=== PATIENT | male | born 1965 | race African-American/Black ===

== ENCOUNTER 2019-10-15 09:15 | Inpatient (IN) | payer OTHER, MEDICAID ==
[~2019-10-15] VITALS: Ht 180.3 cm; Wt 80.7 kg
--- NOTE | 2019-10-15 09:15 | NUR ---
Patient BIBA ALS accompanied by Delfina ABREU, transferred to bed 9. RN evaluating patient at bedside.
[2019-10-15 09:17] VITALS: BP 120/72
--- NOTE | 2019-10-15 09:19 | NUR ---
Dr. South is evaluating the patient at bedside.
--- NOTE | 2019-10-15 09:20 | NUR ---
54 Y/O M BIBA FROM HOME DUE TO A SIDE EFFECT REACTION TO RX LOTUDA. PER EMS HAVING DISTONIA GIVEN BENADRYL IN THE FIELD AND PT IMPROVED. PT A/OX4. NOT COOPERATIVE WITH HX AND FULL RX. SIDE RAIL X1.
[2019-10-15] MEDS ORDERED: diphenhydrAMINE 50 MG/ML VIAL IVP ONE (09:25)
[2019-10-15] MEDS ORDERED: NACL 0.9% 1,000 ML IV ONE (09:25)
[2019-10-15 09:48] LABS: BASOPHILS % (AUTO) 0.6 % (0.0-2.0); EOSINOPHILS # (AUTO) 0.3 K/uL (0-0.4); EOSINOPHILS % (AUTO) 4.9 % (0.0-4.0); HEMATOCRIT 44.2 % (36-52); HEMOGLOBIN 14.4 g/dL (12.0-18.0); LYMPHOCYTES # (AUTO) 1.3 K/uL (2.0-11.5); LYMPHOCYTES % (AUTO) 25.6 % (20.5-51.1); MEAN CORPUSCULAR HEMOGLOBIN 29 pg (27-31); MEAN CORPUSCULAR HGB CONC 33 g/dL (33-37); MEAN CORPUSCULAR VOLUME 87.5 fL (80-94); MONOCYTES # (AUTO) 0.6 K/uL (0.8-1.0); MONOCYTES % (AUTO) 11.1 % (1.7-9.3); NEUTROPHILS # (AUTO) 2.9 K/uL (1.8-7.7); NEUTROPHILS % (AUTO) 57.8 % (42.2-75.2); PLATELET COUNT (AUTO) 256 K/uL (140-450); RED BLOOD CELL COUNT(AUTO) 5.05 MIL/uL (4.20-6.10); RED CELL DISTRIBUTION WIDTH 14.7 % (11.6-13.7); WHITE BLOOD COUNT (AUTO) 5.1 K/uL (4.8-10.8)
--- NOTE | 2019-10-15 10:31 | NUR ---
PATIENT RESTING IN BED, SIDE RAIL X1
[2019-10-15 10:37] LABS: ALBUMIN 3.4 g/dL (3.4-5.0); ANION GAP 7.5 (8-16); CARBON DIOXIDE 31.4 mmol/L (21-32); POTASSIUM 3.9 mmol/L (3.5-5.1); TOTAL BILIRUBIN 0.7 mg/dL (0.0-1.0)
--- NOTE | 2019-10-15 12:44 | NUR ---
Dr. South is re-evaluating the patient at bedside.
[2019-10-15] MEDS ORDERED: BENZTROPINE 2 MG/2 ML AMP IVP ONE ×2 (12:45→14:40)
[2019-10-15] MEDS: NACL 0.9% 1,000 ML IV SCH (14:53)
[2019-10-15] MEDS ORDERED: TAMS0.4C97 PO (14:55)
[2019-10-15] MEDS ORDERED: MAGN241.1 PO (14:55)
[2019-10-15] MEDS ORDERED: MIRT15TA PO (14:55)
[2019-10-15] MEDS ORDERED: DIVA250T PO (14:55)
[2019-10-15] MEDS ORDERED: LURA40TA PO (14:55)
[2019-10-15] MEDS ORDERED: CYAN100T65 PO ×2 (14:55→16:00)
[2019-10-15] MEDS ORDERED: [UNRECOGNIZED DRUG - CODE] PO (14:55)
[2019-10-15] MEDS ORDERED: CALC-575 PO (14:55)
[2019-10-15] MEDS ORDERED: PANT40EC PO ×2 (14:55→16:00)
[2019-10-15] MEDS ORDERED: ONDANSETRON 4 MG/2 ML VIAL IM/IVP PRN (14:55)
[2019-10-15] MEDS ORDERED: QUET300T26 PO (14:55)
[2019-10-15] MEDS ORDERED: MAGN400S60 PO (14:55)
[2019-10-15] MEDS ORDERED: ASCO500T45 PO (14:55)
[2019-10-15] MEDS ORDERED: HYDROcodone/APAP 7.5/325 MG 1 TAB PO PRN ×2 (14:55→17:25)
[2019-10-15] MEDS ORDERED: DICL3GEL5 TP (14:55)
[2019-10-15] MEDS ORDERED: ONDA4TAB PO (14:55)
[2019-10-15] MEDS ORDERED: DOCUSATE SODIUM 100 MG GELCAP PO PRN (14:55)
[2019-10-15] MEDS ORDERED: BUDE1AER IH (14:55)
[2019-10-15] MEDS ORDERED: KETO2CRE3 TP (14:55)
[2019-10-15] MEDS ORDERED: CHOL200035 PO (14:55)
[2019-10-15] MEDS ORDERED: [UNRECOGNIZED DRUG - CODE] PO (14:55)
[2019-10-15] MEDS ORDERED: HYDR-5092 PO (14:55)
[2019-10-15] MEDS ORDERED: ACETAMINOPHEN 325 MG TAB PO PRN (14:55)
[2019-10-15] MEDS ORDERED: AZEL137S8 NS (14:55)
[2019-10-15] MEDS ORDERED: NALO25TA PO (14:55)
[2019-10-15 15:25] VITALS: BP 135/87
--- NOTE | 2019-10-15 15:25 | NUR ---
Patient will be admitted to care of . Admited to MS. Will go to room 125B. Belongings list completed. Report to ALTAGRACIA PADILLA.
--- NOTE | 2019-10-15 15:25 | NUR ---
PT CAME TO UNIT ON WHEELCHAIR. PT AMBULATED FROM WHEEL CHAIR TO BED. ADMISSION ASSESSMENT DONE ON PATIENT. SKIN INTACT EXCEPT FOR AN OLD SURGERY SCAR ON LEFT CHEST. PT SAYS HE HAD PAST SUICIDAL IDEATION. NOW HE SAYS THAT PEOPLE ARE OUT TO KILL HIM. PT IS HOMELESS. PT [place] AND ENQUIRED ABOUT RESOURCES. PT HAS A SON BUT DOES NOT STAY WITH HIM. PT'S BELONGINGS WITH PATIENT. PT'S MEDICATIONS WAS SEEN BY DR. TREJO. IV INTACT. PAIN TO LEGS BUT TOLERABLE. NOTED WITH SWELLING TO INNER FEET. PT LAST TOOK ILLICIT DRUGS ON O. CHOICE OD DRUG WAS SPEED. PATIENT SMOKES 1 PACK PER DAY BUT REFUSED SMOKING CESSATION CLASSES. PT SAYS HE HAS A HISTORY OF BIPOLAR, SCHIZOPHRENIA, AND SUICIDAL IDEATION. BUT NOT CURRENT THOUGHTS TO HARM HIM. BED ALARM IN CHECK. PT IS ALERT AND AWAKE AND RESPONSIVE. PT HAD A SANDWICH AND JUICE TO DRINK. CALL LIGHT IN REACH.
[2019-10-15 15:53] LABS: PROTHROMBIN TIME 10.2 secs (10.8-13.4)
[2019-10-15 16:10] LABS: CHOL/HDL RATIO 3.2 (1-4.5); FREE T4 (FREE THYROXINE) 1.2 ng/dL (0.76-1.46); MAGNESIUM 1.9 mg/dL (1.8-2.4); THYROID STIMULATING HORMONE 1.24 uIU/mL (0.34-3.74)
[2019-10-15] MEDS ORDERED: MECLIZINE 25 MG TAB PO PRN (17:25)
[2019-10-15] MEDS ORDERED: LORazepam 2 MG/ML VIAL IVP PRN (17:25)
[2019-10-15] MEDS ORDERED: KCL 20 MEQ/WATER INJ PREMIX 200 ML IV PRN (17:40)
--- NOTE | 2019-10-15 17:59 | NUR ---
PT IS IN BED AT THIS TIME. PT AMBULATED TO RESTROOM. NO COMPLAINS OF PAIN. NO DISTRESS NOTED. CALL LIGHT IN REACH.
--- NOTE | 2019-10-15 18:09 | NUR ---
PT REFUSED LAB DRAW. UNABLE TO DRAW BLOOD FROM IV LINE. DID NOT GET A BLOOD RETURN.
--- NOTE | 2019-10-15 19:25 | NUR ---
SHIFT REPORT GIVEN TO DOOR TO DOOR FUNDRAISING COLLECTOR NURSE. PT IS IN BED IN STABLE CONDITION. CALL LIGHT IN REACH.
--- NOTE | 2019-10-15 19:25 | NUR ---
RECIEVED PT. AAOX4 , NID , IV SITE INTACT AND PATENT . DENIES PAIN . STILL FOR COLLECTION OF URINE - FOR URINE DRUG TEST - REMINDS PT. ON SAFETY / FALL PRECAUTION PROTOCOL - CALL LIGHT / URINAL WITHIN REACH . PLAN OF CARE DISCUSSED AND VERBALIZE UNDERSTANDING. WILL CONT. TO MONITOR. ON S2 PRECAUTION PROTOCOL .
[2019-10-15 20:00] VITALS: BP 122/78
[2019-10-15] MEDS: QUEtiapine FUMARATE 25 MG TAB PO SCH (20:52)
[2019-10-15] MEDS: DIVALPROEX 500 MG TABEC PO SCH (20:52)
--- NOTE | 2019-10-15 22:00 | NUR ---
MADE ROUNDS , NO COMPLAIN MADE AT THIS TIME . CALL LIGHT WITHIN REACH.
--- NOTE | 2019-10-15 23:34 | NUR ---
MADE ROUNDS - NO S/ S OF ACUTE DISTRESS NOTED - REFUSED V/ S TAKING.
--- NOTE | 2019-10-16 02:00 | NUR ---
NO COMPLAIN MADE.
--- NOTE | 2019-10-16 02:10 | NUR ---
MADE ROUNDS , REMINDS HIM HE SCHEDULED FOR HEAD CT SCAN - HE SAID LEAVE ME ALONE.
--- NOTE | 2019-10-16 06:00 | NUR ---
INFORM LEXI PT REFUSED CT HEAD AND LAB BLOOD DRAW.
--- NOTE | 2019-10-16 07:20 | NUR ---
RECEIVED REPORT FROM FRUIT BUYING GRADER NURSE. PT IS AWAKE AND ORIENTED. INTRODUCED MYSELF AND UPDATED THE BOARD. V/S WITHIN NORMAL. IV ON L AC 20G, NS AT 60ML/HR. SKIN IS INTACT. DENIES PAIN. AMBULATORY. PER FRUIT BUYING GRADER, PT REFUSED LABS, CT OF THE HEAD, THIS MORNING. WILL CONTINUE TO MONITOR PT.
[2019-10-16 07:23] LABS: BARBITURATE, URINE NEG. ng/ml (NEG <=200); BENZODIAZEPINE, URINE NEG. ng/mL (NEG <=200); CANNABINOID, URINE NEG. ng/mL (NEG <=50); COCAINE, URINE NEG. ng/mL (NEG <=300); OPIATE, URINE NEG. ng/mL (NEG <=2000); PHENCYCLIDINE SCREEN,URINE NEG. ng/mL (NEG <=25)
[2019-10-16] MEDS: NACL 0.9% 1,000 ML IV SCH (07:33)
[2019-10-16 08:00] VITALS: BP 103/69
--- NOTE | 2019-10-16 08:16 | NUR ---
PATIENT HAS BEEN SCREENED AND CATEGORIZED LOW NUTRITION RISK. PATIENT WILL BE SEEN WITHIN 7 DAYS OF ADMISSION. 10/22/[address]
[2019-10-16 08:26] LABS: APPEARANCE,URINE CLEAR (CLEAR); BILIRUBIN,URINE NEGATIVE (NEGATIVE); BLOOD, URINE NEGATIVE (NEGATIVE); COLOR,URINE YELLOW (YELLOW); LEUKOCYTE ESTERASE ,URINE NEGATIVE (NEGATIVE); NITRITE, URINE NEGATIVE (NEGATIVE); UGLUCOSE NEGATIVE (NEGATIVE)
[2019-10-16 08:27] LABS: T4 (THYROXINE) 5.1 ug/dL (4.5-12.0)
--- NOTE | 2019-10-16 08:30 | NUR ---
NOTICED PT'S IV SITE WAS BLEEDING. CHECKED ON THE DRESSING. CHANGED DRESSING BUT IV IS ALMOST OUT OF PLACE. PT REFUSED ANOTHER IV ACCESS. WILL NOTIFY
[2019-10-16] MEDS: NICOTINE TRANSD SYS 14 MG/24 HR PATCH TD SCH (09:19)
[2019-10-16] MEDS: TAMSULOSIN 0.4 MG CAP PO SCH (09:20)
[2019-10-16] MEDS: DIVALPROEX 500 MG TABEC PO SCH ×2 (09:20→20:35)
[2019-10-16] MEDS: QUEtiapine FUMARATE 25 MG TAB PO SCH (09:20)
[2019-10-16] MEDS: ALBUTEROL SULFATE/IPRATROPIU 3 ML SOL IH SCH ×2 (09:26→21:35)
[2019-10-16] MEDS ORDERED: diphenhydrAMINE 50 MG CAP PO SCH (09:56)
--- NOTE | 2019-10-16 11:35 | NUR ---
[employer] Note: Per patient, he does not want to provide me with information for assessment/discharge plan.
[2019-10-16 12:00] VITALS: BP 101/68
--- NOTE | 2019-10-16 12:38 | NUR ---
DISCHARGE PLANNING: THIS IS A 55 Y/O MALE PATIENT FROM HOME, WHO CAME IN DUE TO LOCKED JAW, UNABLE TO MOVE AND JITTERY SENSATION X 1 DAY. PAST MEDICAL HISTORY INCLUDE LIVER CIRRHOSIS, ETOH ABUSE, CHRONIC PAIN, COPD. INITIAL DIAGNOSIS OF DYSTONIA. CURRENT LABS INCLUDE WBC 5.1, H/H 14.4/44.2, NA/K 139/3.9, BUN/CREA 10/1.0. UDS SHOWED POSITIVE FOR AMPHETAMINES. MRSA NARES PENDING. ON SEROQUEL, DEPAKOTE. CONSULTS INCLUDE NEURO, PODIATRY AND PSYCHE CONSULTS. DC PLAN PENDING ON PATIENT'S RESPONSE TO TREATMENT. Addendum: 10/17/19 at 1559 by Evelyn Parra CM 0900: RECEIVED AN ORDER FOR [facility] FOR PT. MET WITH THE PATIENT AT THE BEDSIDE TO DISCUSS DC PLANNING AND IS IN AGREEMENT. HE ALSO STATED HE DOES NOT HAVE ANY PREFERENCE. HE SAID HIS PLAN IS TO GO BACK HOME WITH HIS SON AFTER SNF. HE ALSO STATED THAT HE RECEIVES $800/MONTH FROM [employer], BUT IS NOT WILLING TO PAY FOR A BOARD AND CARE. HE STATED THAT HIS SON WHO LIVES ON A SECTION 8 HOUSING IS WILLING TO TAKE HIM BACK. INQUIRY SENT TO [facility], [facility] AND [facility]. PER [facility], THEY WILL REVIEW THE REFERRAL PER [facility], THEY WILL REVIEW THE REFERRAL. Addendum: 10/17/19 at 1608 by Evelyn Parra CM RECEIVED A CALL FROM [facility] [phone], STATING THAT THEY ARE ABLE TO ACCEPT THE PATIENT AND WILL BE ABLE TO SET UP TRANSPORT WELL. DR. MCKEON AND CHARGE NURSE MADE AWARE.
[2019-10-16] MEDS: AZELASTINE NASAL SPRAY NS SCH (15:29)
[2019-10-16 16:43] VITALS: BP 119/76
--- NOTE | 2019-10-16 17:00 | NUR ---
LATE ENTRY. PT HAD AT LEAST 5 SANDWICHES IN BETWEEN MEALS. CONSTANTLY ASKS FOR FOOD. IF NOT EATING, SLEEPING. NO MORE JITTERY, LOCKED JAW. ALL SX RESOLVED. IV NOT WORKING. REFUSED REINSERT. MD AWARE. MOST LIKELY D/C TOMORROW.
--- NOTE | 2019-10-16 19:20 | NUR ---
ENDORSED PT TO THE SAND CAR WORKER NURSE. PT IS IN STABLE CONDITION.
--- NOTE | 2019-10-16 19:25 | NUR ---
RECEIVED PT ON BED, AAOX4, DENIES ANY PAIN, NO COMPLAINT OF JITTERY OR LOCKJAW, NO IV ACCESS AT THIS TIME, PT REFUSED IN INSERTION, 'S ARE AWARE, ON SEIZURE PRECAUTION WITH SIDE RAILS UP AND PADDED, SAFETY MEASURES IN PLACE, CALL LIGHT WITHIN REACH.
[2019-10-16] MEDS: diphenhydrAMINE 50 MG CAP PO SCH (20:35)
[2019-10-16] MEDS: QUEtiapine FUMARATE 100 MG TAB PO SCH (20:35)
--- NOTE | 2019-10-16 20:35 | NUR ---
DUE MEDS ADMINISTERED WITH EDUCATION PROVIDED, PT PROVIDED WITH COFFEE PER REQUEST, ALL NEEDS ATTENDED.
--- NOTE | 2019-10-16 21:35 | NUR ---
PT REFUSED SCHEDULED BREATHING TX. PT SATURATION WAS 97% ON RA. B/S WERE CLEAR.NO SOB NOTED. WILL CONT TO MONITOR
--- NOTE | 2019-10-16 23:45 | NUR ---
PT REFUSED VITAL SIGNS TAKING, RISK AND BENEFITS EXPLAINED, PT STILL REFUSING STATED "LEAVE ME ALONE" THEN COVERED HIS HEAD WITH BLANKET, NO SIGNS OF DISTRESS, CONTINUE TO MONITOR CLOSELY.
[2019-10-17] MEDS: NACL 0.9% 1,000 ML IV SCH ×2 (00:13→16:53)
--- NOTE | 2019-10-17 05:25 | NUR ---
PT AWAKE, PT REFUSED AM LAB DRAW, RISK AND BENEFITS EXPLAINED, STILL REFUSING, COFFEE PROVIDED PER REQUEST, ALL NEEDS ATTENDED.
--- NOTE | 2019-10-17 07:16 | NUR ---
PT AWAKE, NO SIGNS OF DISTRESS, BEDSIDE REPORT GIVEN TO RANDY HEADLEY FOR CONTINUITY OF CARE.
--- NOTE | 2019-10-17 07:28 | NUR ---
RECEIVED BEDSIDE REPORT FROM HOSE OPERATOR NURSE RUBEN. PT IS ASLEEP, NO S/S OF DISTRESS, ON ROOM AIR, SKIN INTACT. NO IV SITE, PT HAS REFUSED IV PLACEMENT. FALL PRECAUTIONS IN PLACE. SEIZURE PRECAUTIONS IN PLACE. CALL LIGHT IS WITHIN REACH. PER NIGHT NURSE, PT HAS BEEN REFUSING VITAL SIGN CHECKS AND ASSESSMENTS. WILL CONTINUE TO MONITOR.
[2019-10-17 08:00] VITALS: BP_SYST 131; BP_SYST 145; BP_DIAS 81; BP_DIAS 98
[2019-10-17] MEDS: NICOTINE TRANSD SYS 14 MG/24 HR PATCH TD SCH (08:42)
[2019-10-17] MEDS: DIVALPROEX 500 MG TABEC PO SCH ×2 (08:43→21:34)
[2019-10-17] MEDS: QUEtiapine FUMARATE 100 MG TAB PO SCH ×2 (08:43→21:34)
[2019-10-17] MEDS: AZELASTINE NASAL SPRAY NS SCH (08:43)
[2019-10-17] MEDS: TAMSULOSIN 0.4 MG CAP PO SCH (08:43)
[2019-10-17] MEDS: diphenhydrAMINE 50 MG CAP PO SCH ×2 (08:43→21:34)
--- NOTE | 2019-10-17 08:47 | NUR ---
AM MEDS ADMINISTERED, PT TOLERATED WELL. PT REFUSED THE AZELASTINE NOSE SPRAY, SAYS IT "STUFFED HIM UP" AFTER HE TOOK IT LAST TIME.
[2019-10-17] MEDS: ALBUTEROL SULFATE/IPRATROPIU 3 ML SOL IH SCH ×2 (09:21→21:00)
--- NOTE | 2019-10-17 11:16 | NUR ---
PT IS LYING IN BED, COMFORTABLE, NO S/S OF DISTRESS. PT KEEPS ASKING FOR SANDWICHES. PT HAD A SANDWICH TODAY AFTER BREAKFAST AND ASKING FOR ONE AGAIN. PT MADE AWARE THAT LUNCH IS COMING IN LESS THAN AN HOUR.
--- NOTE | 2019-10-17 12:30 | NUR ---
GOT A CALL FROM LAB ASKING TO CANCEL PT'S LAB DRAW ORDERS FOR THIS MORNING, SINCE THE PT REFUSED THE DRAWS. DR TREJO MADE AWARE.
--- NOTE | 2019-10-17 13:41 | NUR ---
PT LYING COMFORTABLY IN BED, NO DISTRESS OR COMPLAINTS.
--- NOTE | 2019-10-17 15:47 | NUR ---
GOT A CALL FROM MARICHUY FROM [facility], WANTING TO SPEAK WITH THE PATIENT DIRECTLY REGARDING HIS RESIDENCE HISTORY. PHONE HANDED OVER TO THE PT.
[2019-10-17 16:00] VITALS: BP 135/83
--- NOTE | 2019-10-17 19:30 | NUR ---
ENDORSED PT TO SPIN INSTRUCTOR NURSE IN STABLE CONDITION.
--- NOTE | 2019-10-17 19:32 | NUR ---
RECEIVED FROM AM RN IN BED SLEEPING. CALL LIGHT WITH IN REACH. NO IVF SITE RT PT. REFUSED TO HAVE ONE PER AM RN AND THAT MD AWARE. PER AM RN PT. A/O X 4. ABLE TO VERBALIZE NEEDS WELL TOO. FOR D/C PLANNING TO SNF TOMORROW FOR CONTINUITY OF CARE .
--- NOTE | 2019-10-17 21:23 | NUR ---
PT REFUSED HHN TX. PT IN NO APPARENT RESPIRATORY DISTRESS AT THIS TIME; HR 66. RR 18, SPO2 OF 99% ON ROOM AIR, AND CLEAR BREATH SOUNDS. WILL CONTINUE TO MONITOR PT.
[2019-10-17 21:29] VITALS: BP 125/65
--- NOTE | 2019-10-17 21:35 | NUR ---
PT. AWAKE AT THIS TIME. ALLOWED ME TO TAKE VITAL SIGNS AT THIS TIME. ABLE TO VERBALIZE WELL IN FAROESE. EXPLAINED WHY I HAVE TO TAKE HIS VS PRIOR MEDICATIONS. AFTER EXPLAINING TO PT. AGREED TO HAVE VS TAKEN BY ME. ASKED IF HE IS HUNGRY AND HE SAID "NO" I HAD DINNER" ENCOURAGED TO CALL FOR ANY HELP HE MAY NEED. RE-ORIENTED TO CALL LIGHT USE.
--- NOTE | 2019-10-18 | NUR ---
REFUSED VITAL SIGNS BUT REQUESTED FOR JELLO. PROVIDED WITH SNACK. NO COMPLAINTS DONE. ABLE TO VERBALIZE NEEDS WELL.
--- NOTE | 2019-10-18 03:21 | NUR ---
BEEN SLEEPING WELL. NO COMPLAINTS DONE.
--- NOTE | 2019-10-18 06:07 | NUR ---
AWAKE AT THIS TIME AND SITTING UP IN BED. PROVIDED WITH COFFEE AND CHICKEN SANDWICH PER REQUEST."TOO HUNGRY". ABLE TO VERBALIZE NEEDS WELL. ABLE TO USE CALL LIGHT WELL . NO PAIN COMPLAINTS AND NO MUSCLE TREMORS OR SEIZURES COMPLAINT DONE THIS SHIFT.
--- NOTE | 2019-10-18 07:20 | NUR ---
RECEIVED PATIENT FROM FASHION JOURNALIST NURSE FOR CONTINUITY OF CARE. AAOX4. HUNGARIAN SPEAKING. NO SIGNS OF DISTRESS NOTED. RESPIRATIONS EVEN AND UNLABORED, ROOM AIR. VISIBLE CHEST RISE NOTED. SKIN WARM, DRY, INTACT. NO IV. BED IN LOW POSITION. CALL LIGHT IS WITHIN REACH. SAFETY MEASURES IN PLACE. PATIENT IS IN CONTACT PRECAUTION FOR + MRSA NARES. WILL CONTINUE TO MONITOR
--- NOTE | 2019-10-18 07:25 | NUR ---
PATIENT REFUSED BLOOD TO BE DRAWN PER PEELER OPERATOR
[2019-10-18] MEDS: ALBUTEROL SULFATE/IPRATROPIU 3 ML SOL IH SCH ×2 (07:54→20:44)
[2019-10-18 08:00] VITALS: BP 127/64
[2019-10-18] MEDS: MUPIROCIN CA NASAL 2% 1GM TUBE NS SCH (08:38)
[2019-10-18] MEDS: diphenhydrAMINE 50 MG CAP PO SCH ×2 (08:39→20:51)
[2019-10-18] MEDS: DIVALPROEX 500 MG TABEC PO SCH ×2 (08:39→20:50)
[2019-10-18] MEDS: TAMSULOSIN 0.4 MG CAP PO SCH (08:39)
[2019-10-18] MEDS: NICOTINE TRANSD SYS 14 MG/24 HR PATCH TD SCH (08:39)
--- NOTE | 2019-10-18 08:39 | NUR ---
GIVEN MORNING MEDICATIONS PO. BACTROBAN IN BOTH NARES. NICOTINE PATCH IN THE LEFT UPPER ARM. REMOVED PREVIOUS PATCH FROM YESTERDAY MORNING. GIVEN CHG BATH. EXPLAINED TO PATIENT MEDS AND SIDE EFFECTS. PATIENT VERBALIZED UNDERSTANDING. BED IN LOW POSITION. CALL LIGHT IS WITHIN REACH. WILL CONTINUE TO MONITOR
[2019-10-18] MEDS: CHLORHEXADINE GLUC 2% CLOTH TP SCH (08:40)
[2019-10-18] MEDS: QUEtiapine FUMARATE 100 MG TAB PO SCH ×2 (08:40→20:50)
[2019-10-18] MEDS ORDERED: QUET100T44 PO (09:20)
[2019-10-18] MEDS ORDERED: TAMS0.4C96 PO (09:20)
[2019-10-18] MEDS ORDERED: CHLO118S2 TP (09:20)
[2019-10-18] MEDS ORDERED: MUPI2CRE22 NS (09:20)
[2019-10-18] MEDS ORDERED: DIVA500E2 PO (09:20)
--- NOTE | 2019-10-18 09:23 | NUR ---
PATIENT REQUESTED CHICKEN SANDWICH. WILL CALL [facility]
[2019-10-18] MEDS: NACL 0.9% 1,000 ML IV SCH (09:33)
--- NOTE | 2019-10-18 09:34 | NUR ---
GIVEN CHICKEN SANDWICH TO THE PATIENT.
[2019-10-18 10:09] VITALS: BP 127/69
[2019-10-18] MEDS ORDERED: guaiFENesin 20 MG/ML UDC PO PRN (10:15)
--- NOTE | 2019-10-18 10:35 | NUR ---
PATIENT IS WATCHING TV AT THIS TIME. NO SIGNS OF DISTRESS NOTED. BED IN LOW POSITION. CALL LIGHT IS WITHIN REACH. WILL CONTINUE TO MONITOR
--- NOTE | 2019-10-18 10:44 | NUR ---
GIVEN ROBITUSSIN FOR COUGH. EXPLAINED TO PATIENT MED AND SIDE EFFECT. PATIENT VERBALIZED UNDERSTANDING. BED IN LOW POSITION. CALL LIGHT IS WITHIN REACH. WILL CONTINUE TO MONITOR
--- NOTE | 2019-10-18 10:55 | NUR ---
CONTACTED [facility] (TEL# [phone]), STATED SHE WILL CALL BACK WITH THE ROOM AND BED NUMBER. AWAITING FOR CALL BACK. -RANDY ASSIGNED MADE AWARE.
[2019-10-18] MEDS ORDERED: DIPH25TA53 PO (12:46)
--- NOTE | 2019-10-18 12:54 | NUR ---
GOT A CALL FROM MARICHUY, THE ADMITTING DIRECTOR AT [facility] ([phone]). SHE TOLD ME THAT THE ONLY AVAILABLE BED THERE IS OCCUPIED BY AN ISOLATION PATIENT + FOR C-DIFF. AIDEN, AND CHARGE NURSE, AWARE.
--- NOTE | 2019-10-18 13:29 | NUR ---
DR. BLANC IS AWARE REGARDING [facility] AVAILABILITY
--- NOTE | 2019-10-18 13:36 | NUR ---
MADE AWARE TO THE PATIENT THAT [facility] IS NOT AVAILABLE. DISCUSSED TO THE PATIENT THAT [facility] IS LOOKING FOR A DIFFERENT PLACE
--- NOTE | 2019-10-18 13:52 | NUR ---
GIVEN 2 PUDDING CUPS REQUESTED BY THE PATIENT
--- NOTE | 2019-10-18 15:26 | NUR ---
REQUESTED CHICKEN SANDWICH AND PUDDING. GIVEN THEM TO THE PATIENT
[2019-10-18 16:00] VITALS: BP 124/82
--- NOTE | 2019-10-18 16:56 | NUR ---
Remote Coders Note: I faxed referral to [facility]. Patient does not have snf preference. Blanca Andujar from [facility] and [facility] will review inquiry and inform patient's nurse if they can accept patient and provide RN with room number and accepting MD. Blanca stated if they can accept patient, she will arrange transportation for patient and pay transportation cost.
--- NOTE | 2019-10-18 17:00 | NUR ---
PATIENT IS AWARE THAT [facility] MIGHT BE AVAILABLE FOR TRANSFER. WILL FOLLOW UP WITH [facility]
--- NOTE | 2019-10-18 17:03 | NUR ---
PATIENT IS SLEEPING AT THIS TIME. NO SIGNS OF DISTRESS NOTED.BED IN LOW POSITION. CALL LIGHT IS WITHIN REACH. WILL CONTINUE TO MONITOR
--- NOTE | 2019-10-18 18:18 | NUR ---
PATIENT IS EATING DINNER AT THIS TIME. NO SIGNS OF DISTRESS NOTED. BED IN LOW POSITION. CALL LIGHT IS WITHIN REACH. WILL CONTINUE TO MONITOR
--- NOTE | 2019-10-18 18:59 | NUR ---
GIVEN PUDDING REQUESTED BY THE PATIENT
--- NOTE | 2019-10-18 19:13 | NUR ---
ENDORSED PATIENT TO THE ICE CREAM VAN VENDOR NURSE FOR CONTINUITY OF CARE. PATIENT IS AWAKE. NO SIGNS OF DISTRESS NOTED. RESPIRATIONS EVEN AND UNLABORED, ROOM AIR.
--- NOTE | 2019-10-18 19:20 | NUR ---
RECEIVED FROM AM RN IN BED AWAKE AND ALERT. NO SOB. DENIES ANY PAIN. PT. A/O X 4. ABLE TO USE CALL LIGHT FOR HELP. NO NOTED S/S OF DYSTONIA. ABLE TO MOVE ALL EXTREMITIES. ASKING AT THIS TIME IF HE HAS SOMEWHERE TO GO AFTER HERE AND THAT HE IS HOMELESS. INFORMED HIM THAT FILM PROCESSOR IS FINDING A PLACE FOR HIM . "OK"
[2019-10-18 20:41] VITALS: BP 127/65
--- NOTE | 2019-10-18 20:44 | NUR ---
PT REFUSED BREATHING TX. PT SAID THAT HE IS JUST TIRED. PT IS ON ROOM AIR RESTING COMFORTABLE. NO RESPIRATORY DISTRESS NOTED. WILL CONT TO MONITOR.
--- NOTE | 2019-10-18 20:51 | NUR ---
ALL P.O. MEDICATIONS TAKEN AND NO COMPLAINTS DONE. PROVIDED WITH MARCE SO HE WILL TAKE ALL MEDICATIONS REQUESTED. VERBALIZES NEEDS WELL IN [place]. ISOLATION PRECAUTIONS RT WITH MRSA NARES.
--- NOTE | 2019-10-18 22:29 | NUR ---
SLEEPING AT THIS TIME. NO RESTLESSNESS. ABLE TO USE URINAL . CALL LIGHT WITH IN REACH. ISOLATION PRECAUTION RT WITH MRSA NARES.
[2019-10-19] VITALS: BP 139/81
--- NOTE | 2019-10-19 00:10 | NUR ---
PT. SEEN STANDING BY THE DOORWAY WATCHING PEOPLE PASS BY. ENCOURAGED TO STAY INSIDE ROOM AND GO TO SLEEP. "I AM BORED" CALL LIGHT WITH IN REACH.
[2019-10-19] MEDS: NACL 0.9% 1,000 ML IV SCH ×2 (00:45→18:53)
--- NOTE | 2019-10-19 03:56 | NUR ---
PT. SLEEPING. NO RESTLESSNESS. CALL LIGHT WITH IN REACH.
--- NOTE | 2019-10-19 06:46 | NUR ---
PT. SLEEPING WELL UP TO THIS TIME. NO RESTLESSNESS. WILL ENDORSE TO AM RN FOR CONTINUITY OF CARE.
--- NOTE | 2019-10-19 07:10 | NUR ---
RECEIVED PATIENT FROM CONFLICT RESOLUTION PROFESSIONAL NURSE FOR CONTINUITY OF CARE. AAOX4. DUTCH SPEAKING. NO SIGNS OF DISTRESS NOTED. RESPIRATIONS EVEN AND UNLABORED, ROOM AIR. PATIENT IS GETTING BREATHING TX AT THIS TIME. VISIBLE CHEST RISE NOTED. SKIN WARM, DRY, INTACT. NO IV. BED IN LOW POSITION. CALL LIGHT IS WITHIN REACH. SAFETY MEASURES IN PLACE. PATIENT IS IN CONTACT PRECAUTION FOR + MRSA NARES. WILL CONTINUE TO MONITOR
[2019-10-19] MEDS: ALBUTEROL SULFATE/IPRATROPIU 3 ML SOL IH SCH ×2 (07:16→21:00)
--- NOTE | 2019-10-19 07:50 | NUR ---
PATIENT REFUSED VITAL SIGNS CHECK.
[2019-10-19] MEDS: CHLORHEXADINE GLUC 2% CLOTH TP SCH (08:28)
[2019-10-19] MEDS: diphenhydrAMINE 50 MG CAP PO SCH ×2 (08:28→21:26)
--- NOTE | 2019-10-19 08:28 | NUR ---
GIVEN MORNING MEDICATIONS PO. EXPLAINED TO PATIENT MEDS AND SIDE EFFECTS. PATIENT VERBALIZED UNDERSTANDING. BED IN LOW POSITION. WILL CONTINUE TO MONITOR.
[2019-10-19] MEDS: TAMSULOSIN 0.4 MG CAP PO SCH (08:29)
[2019-10-19] MEDS: QUEtiapine FUMARATE 100 MG TAB PO SCH ×2 (08:29→21:27)
[2019-10-19] MEDS: MUPIROCIN CA NASAL 2% 1GM TUBE NS SCH (08:29)
[2019-10-19] MEDS: DIVALPROEX 500 MG TABEC PO SCH ×2 (08:29→21:26)
[2019-10-19] MEDS: NICOTINE TRANSD SYS 14 MG/24 HR PATCH TD SCH (08:30)
--- NOTE | 2019-10-19 08:30 | NUR ---
PATIENT IS AWARE THAT HE WILL BE TRANSFERRED TO [facility] IN [place]. AWAITING FOR TRANSPORT. WILL LET THE PT KNOW ONCE TRANSPORT IS ARRANGED.
--- NOTE | 2019-10-19 09:55 | NUR ---
PATIENT REQUESTED [facility]ICIA ADEN. WILL CALL [facility]
--- NOTE | 2019-10-19 10:35 | NUR ---
MADE AWARE THAT THE [facility] IS NOT A GO. WILL UPDATE PATIENT ONCE THERE'S A NEW PLACEMENT
--- NOTE | 2019-10-19 12:07 | NUR ---
PATIENT IS ASLEEP. NO SIGNS OF DISTRESS NOTED. BED IN LOW POSITION. CALL LIGHT IS WITHIN REACH. WILL CONTINUE TO MONITOR
--- NOTE | 2019-10-19 13:29 | NUR ---
per Evelyn Parra ,KYLE pt is accepted at [facility] going to Rm 205 [address] and they will provide transportation.
[2019-10-19] MEDS ORDERED: CHLO118S2 TP (13:35)
[2019-10-19] MEDS ORDERED: MUPI2CRE22 NS (13:35)
--- NOTE | 2019-10-19 13:46 | NUR ---
PER MS. GILLESPIE, GERIATRIC NURSE PRACTITIONER, RAG SORTER TIME IS AT 2030
--- NOTE | 2019-10-19 14:00 | NUR ---
CALLED [facility] FOR LINE CONSTRUCTION ENGINEER TIME. PER [facility], WE NEED TO PROVIDE TRANSPORT
--- NOTE | 2019-10-19 14:00 | NUR ---
PATIENT REFUSED VITAL SIGNS CHECK
--- NOTE | 2019-10-19 14:18 | NUR ---
GOT A CALL FROM BISI GILLESPIE. SHE STATED THAT CHRIS FROM [facility] SAID THAT THEY WILL PROVIDE TRANSPORT. [facility]
--- NOTE | 2019-10-19 14:38 | NUR ---
ROAD TEST EXAMINER WILL CALL PHARMACY TO GET PATIENT'S HOME MEDICATIONS.
--- NOTE | 2019-10-19 14:59 | NUR ---
GOT A CALL FROM JOSE MIGUEL GUARD SERGEANT, THAT [facility] WILL PROVIDE TRANSPORT FOR PATIENT. WILL LET PATIENT KNOW
--- NOTE | 2019-10-19 17:00 | NUR ---
PATIENT SIGNED DISCHARGED PAPER. EXPLAINED THAT HE WILL BE TRANSFERRED TO [facility] FOR PT. PATIENT VERBALIZED UNDERSTANDING.
--- NOTE | 2019-10-19 17:03 | NUR ---
GIVEN JELLO AND PUDDING PATIENT REQUESTED
--- NOTE | 2019-10-19 17:35 | NUR ---
GAVE REPORT TO ROYAL PADILLA AT [facility]. SHE IS AWARE THAT BRAKE DRUM LATHE OPERATOR TIME IS 2030 TONIGHT. SHE IS ALSO AWARE THAT THE PATIENT IS HOMELESS, REFUSED FLU AND PNA VACCINES, REFUSED VITAL SIGNS, SKIN INTACT. NO IV. AMBULATORY, AND + MRSA NARES.
--- NOTE | 2019-10-19 18:31 | NUR ---
PER BISI GILLESPIE, PATIENT'S HOME MEDS WILL BE SENT TO [facility] TOMORROW 10/20/19 BECAUSE PHARMACY IS CLOSED ALREADY
--- NOTE | 2019-10-19 18:55 | NUR ---
FAXED DISCHARGED SUMMARY TO [facility] OF MRSA COLINIZATION. WILL CALL IF THEY RECEIVED
--- NOTE | 2019-10-19 19:00 | NUR ---
CALLED [facility] TO CONFIRM IF THEY RECEIVE THE DISCHARGE SUMMARY. BERT SAID YES AND THE PATIENT IS GOING TO BE TRANSFERRED AT 2030
--- NOTE | 2019-10-19 19:19 | NUR ---
ENDORSED PATIENT TO THE NIGHT NURSE FOR CONTINUITY OF CARE. PATIENT IS SLEEPING AT THIS TIME. NO SIGNS OF DISTRESS NOTED. BED IN LOW POSITION.
--- NOTE | 2019-10-19 19:20 | NUR ---
PM NURSE, SKYLAR, IS AWARE ABOUT PATIENT'S TRANSFER TO [facility].
--- NOTE | 2019-10-19 19:21 | NUR ---
RECEIVED BEDSIDE REPORT FROM DAY SHIFT NURSE. PT IN BED, RESTING. NO SOB OR ANY RESPIRATORY DISTRESS NOTED, BREATHING EVEN AND UNLABORED WITH ROOM AIR. SKIN INTACT, WARM AND DRY TO TOUCH. PT WAITING FOR TX. PT IN STABLE CONDITION.
--- NOTE | 2019-10-19 21:20 | NUR ---
RECEIVED CALL FROM [facility], THEY WERE NOT ABLE TO SET UP TRANSPORTATION TONIGHT AND THEY WILL COME, WORLD RENOWNED CHEF AND RESTAURANT OWNER PT ON TOMORROW MORNING. MADE AWARE OF DR. BERNARD, AND CHARGE NURSE, PRINCE.
--- NOTE | 2019-10-19 21:22 | NUR ---
RECEIVED PT FROM AM SHIFT. PT IN NO APPARENT RESPIRATORY DISTRESS AT THIS TIME; HR 70, RR 18, SPO2 100% ON ROOM AIR, AND A CLEAR BREATH SOUNDS. PT REFUSED HHN TX. WILL CONTINUE TO MONITOR PT.
--- NOTE | 2019-10-19 21:27 | NUR ---
INFORMED PT ABOUT DELAYED TRANSFER D/T TRANSPORTATION. GIVEN BENADRYL, SEROQUEL, AND DEPAKOTE MD ORDERED, PT TOLERATED WELL.
--- NOTE | 2019-10-19 22:25 | NUR ---
Patient's Plan of Care was discussed and reviewed with HARJINDER: GIANCARLO
--- NOTE | 2019-10-19 22:25 | NUR ---
ENDORSED PT TO GIANCARLO FOR CONTINUOUS CARE. PT IN STABLE CONDITION.
--- NOTE | 2019-10-19 22:26 | NUR ---
RECD. SLEEPING COMFORTABLY IN BED, RESPIRATION EVEN AND UNLABORED. SAFETY MEASURES ENFORCED. BED IN THE LOWEST POSITION, SIDE RAILS UP, CALL LIGHT IN REACH. ON BILATERAL LEG SEQUENTIALS. DENIES PAIN 0/10.
--- NOTE | 2019-10-20 | NUR ---
STILL SLEEPING COMFORTABLY IN BED.
--- NOTE | 2019-10-20 05:00 | NUR ---
AWAKE IN BED, REQUESTED FOR COFFEE AND CRACKERS. NO COMPLAINT OF PAIN 0/10.
--- NOTE | 2019-10-20 06:30 | NUR ---
FOUND INSIDE HIS ROOM ALREADY DRESSED UP READY TO GO HOME. EXPLAINED THAT THE AMBULANCE THAT WILL TAKE HIM TO [facility] IS NOT YET HERE. VERY UPSET, WANTS TO GO HOME, WANTS TO SIGN AMA. INFORMED DR. SERRA. PATIENT STATED "I CANNOT WAIT FOR THAT ANYMORE". EXPLAINED HE NEEDS TO WAIT FOR THE PHARMACY BECAUSE HIS HOME MEDICATIONS IS IN THE PHARMACY.
--- NOTE | 2019-10-20 06:46 | NUR ---
PATIENT GETTING UNCONTROLLABLE, SECURITY CAME. AGREED TO WAIT FOR PHARMACY SO THAT HE CAN TAKE HOME HIS HOME MEDICATIONS.
--- NOTE | 2019-10-20 07:05 | NUR ---
PATIENT SIGNED AMA PAPER EVEN ENOUGH EXPLANATION WAS GIVEN THAT IT IS BETTER FOR HIM TO BE TRANSFERRED TO [facility] FOR CONTINUITY OF CARE. SECURITY HEAD OFFICER MARTITA BRING ALL HOME MEDS OF PATIENT FROM PHARMACY AND WAS GIVEN TO PATIENT. WHEN INQUIRED WHERE HE IS GOING, STATED HE WILL FIGURE IT OUT. AMBULATED TO HALLWAY WITH SECURITY TO GO OUT OF THE HOSPITAL AGAINST MEDICAL ADVICE.
== END 2019-10-20 07:05 | disposition left against medical advice (07) | DRG 917 ==
LOC: MED 09:15 → MMU 14:53
PROVIDERS: ADMIT General Practice; ATTEND General Practice
PROC: 0HBRXZZ Excision of Toe Nail, External Approach (ICD-10-PCS; principal; 2019-10-16)
PROC: 0HBRXZZ Excision of Toe Nail, External Approach (ICD-10-PCS; 2019-10-16)
PROC: 0HBRXZZ Excision of Toe Nail, External Approach (ICD-10-PCS; 2019-10-16)
PROC: 0HBRXZZ Excision of Toe Nail, External Approach (ICD-10-PCS; 2019-10-16)
PROC: 0HBRXZZ Excision of Toe Nail, External Approach (ICD-10-PCS; 2019-10-16)
PROC: 0HBRXZZ Excision of Toe Nail, External Approach (ICD-10-PCS; 2019-10-16)
PROC: 0HBRXZZ Excision of Toe Nail, External Approach (ICD-10-PCS; 2019-10-16)
PROC: 0HBRXZZ Excision of Toe Nail, External Approach (ICD-10-PCS; 2019-10-16)
PROC: 0HBRXZZ Excision of Toe Nail, External Approach (ICD-10-PCS; 2019-10-16)
PROC: 0HBRXZZ Excision of Toe Nail, External Approach (ICD-10-PCS; 2019-10-16)
DX: T43.591A Poisoning by other antipsychotics and neuroleptics, accidental (unintentional), initial encounter (principal); G92 Toxic encephalopathy; Z59.0 Homelessness; R45.850 Homicidal ideations; F20.9 Schizophrenia, unspecified; Y92.89 Other specified places as the place of occurrence of the external cause; G40.909 Epilepsy, unspecified, not intractable, without status epilepticus; J44.9 Chronic obstructive pulmonary disease, unspecified; G89.4 Chronic pain syndrome; L60.0 Ingrowing nail; N40.0 Benign prostatic hyperplasia without lower urinary tract symptoms; F31.9 Bipolar disorder, unspecified; F17.210 Nicotine dependence, cigarettes, uncomplicated; K21.9 Gastro-esophageal reflux disease without esophagitis; F41.9 Anxiety disorder, unspecified
CPT/HCPCS: 36415; 70450; 71045; 73630; 80053; 80305; 81003; 82150; 83036; 83690; 83735; 83880; 84100; 84436; 84439; 84443; 84479; 84484; 85025; 85610; 85730; 87081; 93005; 93880; 94640; 96374; 96375; 96376; 97161-GP; 99285; J0515; J1200; J3480; J7030; J7620; Q0092; Q0163

== ENCOUNTER 2019-10-24 07:00 | Emergency (ER) | payer OTHER, MEDICAID ==
[~2019-10-24] VITALS: Ht 190.5 cm; Wt 83.9 kg
[~2019-10-24 07:00] MED LIST: ASCO500T45 PO; AZEL137S8 NS; BUDE1AER IH; CALC-575 PO; CHLO118S2 TP; CHOL200035 PO; CYAN100T65 PO; DICL3GEL5 TP; DIPH25TA53 PO; DIVA500E2 PO; MAGN241.1 PO; MAGN400S60 PO; MIRT15TA PO; MUPI2CRE22 NS; NALO25TA PO; PANT40EC PO; QUET100T44 PO; TAMS0.4C96 PO; [UNRECOGNIZED DRUG - CODE] PO
[2019-10-24 07:07] VITALS: BP 122/78
--- NOTE | 2019-10-24 07:32 | NUR ---
AT THIS TIME, PT STATES HE WAS RECENTLY RELEASED FROM [facility] AND TRIED TO GET IN CONTACT WITH HIS SON BUT WAS UNABLE TO. PT STATES HE IS HOMELESS AND NEEDS A PLACE TO STAY. PT STATES HE HAS COURT CASES AND HE NEEDS A PLACE OF RESIDENCE FOR THE COURT. PT STATES HE IS NOT SUICIDAL AT THIS TIME BUT WANTS A PLACE TO STAY. PT STATES HE WISHES STAFF TO FIND A PENITENTIARY TO ACCEPT PATIENT. UPON PRESENTATION, PT IS FULLY CLOTHED, ALERT AND ORIENTED, SPEAKING IN CLEAR SENTENCES.
--- NOTE | 2019-10-24 07:35 | NUR ---
PT ALSO ADDS CONTINUPUS BILATERAL KNEE AND FOOT PAIN. DENIES INJURY. +CMS
--- NOTE | 2019-10-24 07:39 | NUR ---
PT VERY COOPERATIVE, URINE PROVIDED
--- NOTE | 2019-10-24 07:44 | NUR ---
DR PERDUE AT BEDSIDE
[2019-10-24] MEDS ORDERED: ACETAMINOPHEN 325 MG TAB PO ONE (07:50)
--- NOTE | 2019-10-24 07:56 | NUR ---
12 LEAD EKG AT BEDSIDE.
--- NOTE | 2019-10-24 07:58 | NUR ---
LAB AT BEDSIDE.
[2019-10-24 08:09] LABS: BASOPHILS # (AUTO) 0.1 K/uL (0.00-0.22); BASOPHILS % (AUTO) 1.1 % (0.0-2.0); EOSINOPHILS # (AUTO) 0.2 K/uL (0-0.4); HEMATOCRIT 42.4 % (36-52); HEMOGLOBIN 14.3 g/dL (12.0-18.0); LYMPHOCYTES # (AUTO) 1.3 K/uL (2.0-11.5); LYMPHOCYTES % (AUTO) 15.7 % (20.5-51.1); MEAN CORPUSCULAR HEMOGLOBIN 28 pg (27-31); MEAN CORPUSCULAR HGB CONC 34 g/dL (33-37); MEAN CORPUSCULAR VOLUME 83.8 fL (80-94); MONOCYTES # (AUTO) 0.9 K/uL (0.8-1.0); MONOCYTES % (AUTO) 10.1 % (1.7-9.3); NEUTROPHILS # (AUTO) 6.1 K/uL (1.8-7.7); NEUTROPHILS % (AUTO) 71.1 % (42.2-75.2); PLATELET COUNT (AUTO) 293 K/uL (140-450); RED BLOOD CELL COUNT(AUTO) 5.06 MIL/uL (4.20-6.10); WHITE BLOOD COUNT (AUTO) 8.6 K/uL (4.8-10.8)
--- NOTE | 2019-10-24 08:17 | NUR ---
PT SITTING UP COMFORTABLY IN BED, EATING BREAKFAST.
[2019-10-24 08:50] LABS: APPEARANCE,URINE CLEAR (CLEAR); BILIRUBIN,URINE NEGATIVE (NEGATIVE); BLOOD, URINE NEGATIVE (NEGATIVE); COLOR,URINE YELLOW (YELLOW); LEUKOCYTE ESTERASE ,URINE NEGATIVE (NEGATIVE); NITRITE, URINE NEGATIVE (NEGATIVE); UGLUCOSE NEGATIVE (NEGATIVE)
[2019-10-24 08:56] LABS: ALBUMIN 3.7 g/dL (3.4-5.0); ASPARTATE AMINOTRANSFERASE 46 U/L (15-37); CARBON DIOXIDE 29.7 mmol/L (21-32); CHLORIDE 100 mmol/L (98-107); CREATININE 0.9 mg/dL (0.6-1.3); GFR ARICAN-AMERICAN 113 mL/min (>90); GLUCOSE 81 mg/dL (74-106); POTASSIUM 4.7 mmol/L (3.5-5.1); SALICYLATE < 2.8 mg/dL (2.8-20.0); SODIUM SERUM 138 mmol/L (136-145); TOTAL BILIRUBIN 0.5 mg/dL (0.0-1.0); UREA NITROGEN, BLOOD 16 mg/dL (7-18)
[2019-10-24 08:57] LABS: ACETAMINOPHEN < 0.5 ug/ml (10-30)
[2019-10-24 08:59] LABS: BARBITURATE, URINE NEG. ng/ml (NEG <=200); BENZODIAZEPINE, URINE NEG. ng/mL (NEG <=200); CANNABINOID, URINE NEG. ng/mL (NEG <=50); COCAINE, URINE NEG. ng/mL (NEG <=300); OPIATE, URINE NEG. ng/mL (NEG <=2000); PHENCYCLIDINE SCREEN,URINE NEG. ng/mL (NEG <=25)
--- NOTE | 2019-10-24 09:56 | NUR ---
PT SITTING IN BED READING A MAGAZINE, RR EVEN AND UNLABORED. NO DISTRESS NOTED.
--- NOTE | 2019-10-24 10:11 | NUR ---
PT GAVE SONS PHONE NUMBER [phone], ATTEMPTED TO CALL TWICE, NO ANSWER AND VOICE MALL BOX IS FULL AND MESSAGE CAN NOT BE LEFT
--- NOTE | 2019-10-24 10:30 | NUR ---
EMAIL MARKETER AT BEDSIDE.
--- NOTE | 2019-10-24 11:00 | NUR ---
NADR, PAIN 12/11
--- NOTE | 2019-10-24 11:10 | NUR ---
Improvement Intern Note: SW met with patient at bedside by request of Intel Analyst Shiloh. When SW met with patient, patient disclosed that he was previously arrested and had walked from [facility] until he needed to contact the ambulance that had taken him to [facility]. Patient reported that he was arrested for loitering in front of his son's house because he did not have his son's contact information. Patient stated that he currently has no money but typically receives SSI ~$800 a month. SW provided homeless resources and room and board resources. Patient began coordinating his living arrangements and called his son to pick him up. Patient stated that his son did not answer. Patient requested a bus pass to his son's house. SW asked patient if he had weather appropriate clothing. Patient stated yes. Patient was given a lunch to go and a bus pass. Patient verbalized appreciation. No further needs identified.
[2019-10-24 11:29] VITALS: BP 129/70
--- NOTE | 2019-10-24 11:29 | NUR ---
AFTER SPEAKING WITH LACER AND TIER, PT AGREES TO TAKE RECOMMENDED RESOURCES AND BUS TICKET TO FIND HIS OWN PLACEMENT. PT DRESSED APPROPRIATELY, PROVIDED WITH MEAL AND BUS PASS. PT SIGNED HOMELESS WAIVER. Patient discharged with v/s stable. Written and verbal after care instructions given and explained REGARDING KNEE PAIN. Patient alert, oriented and verbalized understanding of instructions. Ambulatory with steady gait. All questions addressed prior to discharge. ID band removed. Opportunity to ask questions provided and answered. PT DENIES SI UPON DISCHARGE.
== END 2019-10-24 11:30 | disposition home or self-care (01) ==
LOC: MED 07:00
DX: M25.562 Pain in left knee (principal); M25.561 Pain in right knee; I10 Essential (primary) hypertension; F31.9 Bipolar disorder, unspecified; F20.9 Schizophrenia, unspecified; Z59.0 Homelessness; Z79.899 Other long term (current) drug therapy; Z88.4 Allergy status to anesthetic agent
CPT/HCPCS: 36415; 80053; 80305; 81003; 85025; 93005; 99284; G0480; G0482

== ENCOUNTER 2021-07-01 15:11 | Emergency (ER) | payer MEDICAID, MEDICARE, OTHER ==
[~2021-07-01] VITALS: Ht 190.5 cm; Wt 81.6 kg
[~2021-07-01 15:11] MED LIST changes: -ASCO500T45 PO; +ASCO500T95 PO; -CYAN100T65 PO; +MIRT-91 PO; -MIRT15TA PO; -NALO25TA PO; +NALO25TA3 PO; +VITB12 PO
[2021-07-01 15:16] VITALS: BP 124/74
--- NOTE | 2021-07-01 15:21 | NUR ---
56 Y/O MALE BIBA C/O BILAT LEG PAIN. PER EMS [facility] [address] [facility] [place]. DENIES ANY RECENT INJURY OR TRAUMA. PT STATES 8/10 BURNING PAIN. SWELLING NOTED TO BILAT LEGS. NO OPEN WOUNDS NOTED. MEDHX: DM, HTN ALLERIGES: LATUDA, ABILIFY, ZYPREXA
--- NOTE | 2021-07-01 15:34 | NUR ---
HOMERO STONE AT BEDSIDE ASSESING THE PATIENT.
[2021-07-01] MEDS ORDERED: IBUPROFEN 600 MG TAB PO ONE (15:35)
[2021-07-01] MEDS ORDERED: IBUP-2213 PO (16:17)
--- NOTE | 2021-07-01 16:18 | NUR ---
PT AMBULATED TO RESTROOM, STEADY GAIT
[2021-07-01 16:28] VITALS: BP 124/74
--- NOTE | 2021-07-01 16:30 | NUR ---
Patient discharged with v/s stable. Written and verbal after care instructions given and explained. Patient alert, oriented and verbalized understanding of instructions. Ambulatory with steady gait. All questions addressed prior to discharge. ID band removed. Patient advised to follow up with PMD. Rx of IBUPROFEN AND DIABETIC SHOES given. ALSO WAS PROVIDED WITH HOMELESS NUTRITION PACK.Patient educated on indication of medication including possible reaction and side effects. Opportunity to ask questions provided and answered.
--- NOTE | 2021-07-01 16:30 | NUR ---
The patient's care was reviewed and supervised by Vick Feldman RN.
--- NOTE | 2021-07-01 16:44 | NUR ---
BUS PASS PROVIDED
== END 2021-07-01 16:30 | disposition home or self-care (01) ==
LOC: MED 15:11
DX: M79.671 Pain in right foot (principal); M79.672 Pain in left foot; X58.XXXA Exposure to other specified factors, initial encounter; Y93.89 Activity, other specified; Y92.89 Other specified places as the place of occurrence of the external cause; Y99.8 Other external cause status
CPT/HCPCS: 99282